=== PATIENT | female | born 1995 | race Hispanic/Latino ===

== ENCOUNTER 2019-05-28 07:31 | Outpatient (CLI) | payer OTHER ==
--- NOTE | 2019-05-28 09:40 | ULT ---
LIMITED SONOGRAM RIGHT BREAST: Date: 05/28/19 HISTORY: Right breast mass. FINDINGS: Sonographic evaluation of the superior aspect of the right breast in region of palpable concern shows a lobular, well-circumscribed, anechoic mass measuring up to 1.7 cm x 1.1 cm greatest diameters. Pos terior acoustic enhancement. Slight lobulation. IMPRESSION: Benign-appearing breast cyst of superior aspect right breast. No solid masses. POS: [facility]
== END 2019-05-28 07:32 | disposition home or self-care (01) ==
LOC: BICULT 07:31
PROVIDERS: ATTEND Nurse Practitioner Family
DX: N63.10 Unspecified lump in the right breast, unspecified quadrant (principal); N60.01 Solitary cyst of right breast

== ENCOUNTER 2020-12-29 08:26 | Outpatient (CLI) | payer BC | END 2020-12-29 08:27 | disposition home or self-care (01) | LOC: BICRAD 08:26 | PROVIDERS: ATTEND Family Medicine | DX: M54.16 Radiculopathy, lumbar region (principal) | CPT/HCPCS: 72100 ==